=== PATIENT | male | born 1970 | race Caucasian/White ===

== ENCOUNTER 2024-08-25 12:15 | Inpatient (IN) | payer OTHER ==
[2024-08-25 13:09] VITALS: BMI 27.4
[2024-08-25] MEDS ORDERED: MAGNESIUM HYDROX 2400MG/30ML ORAL SUSPENSION 30 ML CUP PO PRN (13:22)
[2024-08-25] MEDS ORDERED: BENZONATATE 200 MG CAPSULE PO PRN (13:22)
[2024-08-25] MEDS ORDERED: NALOXONE (NARCAN) HCL 4 MG/0.1 ML SPRAY NS PRN (13:22)
[2024-08-25] MEDS ORDERED: DICYCLOMINE HCL 10 MG CAPSULE PO PRN (13:22)
[2024-08-25] MEDS ORDERED: LOPERAMIDE HCL 2 MG CAPSULE PO PRN (13:22)
[2024-08-25] MEDS ORDERED: POLYETHYLENE GLYCOL (HEALTHYLAX) 3350 17 GM PACKET PO PRN (13:22)
[2024-08-25] MEDS ORDERED: IBUPROFEN 400 MG TABLET (FP) PO PRN (13:22)
[2024-08-25] MEDS ORDERED: guaiFENesin 600 MG TABLET.ER (FP) PO PRN (13:22)
[2024-08-25] MEDS ORDERED: BENZOCAINE/MENTHOL (CHLORASEPTIC ) LOZENGE MM PRN (13:22)
[2024-08-25] MEDS ORDERED: chlordiazePOXIDE HCL 25 MG CAPSULE PO PRN (13:22)
[2024-08-25] MEDS ORDERED: MAG HYDROX/AL HYDROX/SIMETH 30 ML UNIT-DOSE CUP PO PRN (13:22)
[2024-08-25] MEDS ORDERED: BISMUTH SUBSALICYLATE 262 MG/15 ML BTL PO PRN (13:22)
[2024-08-25] MEDS ORDERED: ONDANSETRON *ODT* 4 MG TABLET SL PRN (13:22)
[2024-08-25] MEDS: NICOTINE 14 MG/24 HOURS TOPICAL PATCH TD SCH (15:27)
[2024-08-25] MEDS: PRENATAL VITAMINS W/ FOLIC ACID TABLET (FP) PO SCH (15:27)
[2024-08-25] MEDS ORDERED: LISINOPRIL 10 MG TABLET ONE (15:50)
[2024-08-25] MEDS ORDERED: cloNIDine HCL 0.1 MG TABLET ONE (15:50)
[2024-08-25] MEDS: cloNIDine HCL 0.1 MG TABLET PO ONE (15:52)
[2024-08-25] MEDS: LISINOPRIL 20 MG TABLET PO ONE (15:53)
[2024-08-25] MEDS: chlordiazePOXIDE HCL 25 MG CAPSULE PO SCH (16:50)
[2024-08-25] MEDS: IBUPROFEN 600 MG TABLET (FP) PO PRN (16:55)
[2024-08-25] MEDS: MELATONIN 5 MG TABLETS PO SCH (22:29)
[2024-08-25] MEDS: THIAMINE 100 MG TABLET PO SCH (22:29)
[2024-08-25] MEDS: ACETAMINOPHEN 325 MG TABLET (FP) PO PRN (22:32)
[2024-08-26] MEDS ORDERED: amLODIPine BESYLATE 10 MG TABLET (FP) PO SCH (10:00)
[2024-08-26] MEDS: amLODIPine BESYLATE 10 MG TABLET (FP) PO SCH (10:45)
[2024-08-26] MEDS: HYDROCHLOROTHIAZIDE 12.5 MG CAPSULE (FP) PO SCH (10:46)
[2024-08-26] MEDS: FLU VACCINE (FLULAVAL) PF 45 MCG/0.5 ML SYRINGE 2024-2025 IM ONE (12:41)
[2024-08-26 12:45] LABS: HEMATOCRIT 37.3 % (35.4-49); HEMOGLOBIN 12.9 GM/dL (11.7-16.9); MCH 32.1 pg (25.7-33.7); MCHC 34.6 g/dl (32.0-35.9); MEAN CELL VOLUME 92.9 fl (80-96); PLATELET COUNT 121 10^3/uL (134-434); RBC 4.01 M/mm3 (4.00-5.60); RDW 12.8 % (11.9-15.9); WHITE BLOOD COUNT 4.6 K/mm3 (4.0-10.0)
[2024-08-26 12:46] LABS: CHLORIDE 102 mmol/L (98-107); POTASSIUM 3.6 mmol/L (3.5-5.1); SODIUM 139 mmol/L (136-145)
[2024-08-26 12:49] LABS: CALCIUM 8.8 mg/dL (8.5-10.1)
[2024-08-26 12:50] LABS: ALBUMIN 3.7 g/dl (3.4-5.0); ANION GAP 7 mmol/L (4-13); CO2 30 mmol/L (21-32); GLUCOSE,RANDOM 75 mg/dL (74-106)
[2024-08-26 12:53] LABS: CREATININE 1.7 mg/dL (0.55-1.3); SGOT/AST 25 U/L (15-37); SGPT/ALT 24 U/L (13-61)
[2024-08-26 12:54] LABS: BILIRUBIN,TOTAL 0.7 mg/dL (0.2-1)
[2024-08-26 12:55] LABS: ALK PHOS 63 U/L (45-117)
[2024-08-26] MEDS: METHOCARBAMOL 500 MG TABLET PO PRN (14:41)
[2024-08-26] MEDS ORDERED: TIOTROPIUM BROMIDE 2.5 MCG (SPIRIVA) RESPIMAT INHALER IH SCH (22:00)
[2024-08-26] MEDS: FERROUS SO4 325 MG TABLET (FP) PO SCH (22:31)
[2024-08-26] MEDS: BUDESONIDE/FORMETEROL FUMARATE 160/4.5 mcg INHALER IH SCH (22:31)
[2024-08-27] MEDS: hydrOXYzine PAMOATE 25 MG CAPSULE (FP) PO PRN (05:38)
[2024-08-27] MEDS: chlordiazePOXIDE HCL 25 MG CAPSULE PO SCH (05:38)
[2024-08-27] MEDS ORDERED: BUDESONIDE/FORMETEROL FUMARATE 160/4.5 mcg INHALER IH SCH (10:00)
[2024-08-27] MEDS: ATORVASTATIN CA 20 MG TABLET (FP) PO SCH (10:05)
[2024-08-27] MEDS: TIOTROPIUM BROMIDE 2.5 MCG (SPIRIVA) RESPIMAT INHALER IH SCH (10:05)
[2024-08-27] MEDS ORDERED: METOPROLOL TARTRATE 50 MG TABLET (FP) PO SCH (10:55)
[2024-08-27] MEDS: METOPROLOL TARTRATE 50 MG TABLET (FP) PO SCH (11:21)
[2024-08-28] MEDS ORDERED: chlordiazePOXIDE HCL 10 MG CAPSULE PO PRN
[2024-08-28] MEDS: chlordiazePOXIDE HCL 10 MG CAPSULE PO SCH (05:50)
[2024-08-29] MEDS: chlordiazePOXIDE HCL 10 MG CAPSULE PO SCH (05:34)
[2024-08-29 10:48] LABS: POTASSIUM 3.4 mmol/L (3.5-5.1)
[2024-08-29 11:06] LABS: BLOOD UREA NITROGEN 20.8 mg/dL (7-18); CALCIUM 8.7 mg/dL (8.5-10.1)
[2024-08-29 11:07] LABS: ALBUMIN 3.2 g/dl (3.4-5.0)
[2024-08-29 11:09] LABS: PHOSPHOROUS 3.2 mg/dL (2.5-4.9)
[2024-08-29 11:10] LABS: CREATININE 0.8 mg/dL (0.55-1.3)
[2024-08-29] MEDS: LOSARTAN POTASSIUM 50 MG TABLET PO SCH (13:34)
[2024-08-29] MEDS: NALTREXONE HCL 50 MG TABLET PO ONE (14:13)
[2024-08-29] MEDS: LIDOCAINE 5% TOPICAL PATCH TP SCH (15:50)
[2024-08-29] MEDS: LIDOCAINE PATCH REMOVAL MC SCH (22:13)
[2024-08-30] MEDS: chlordiazePOXIDE HCL 10 MG CAPSULE PO ONE (05:50)
[2024-08-30] MEDS: NALTREXONE HCL 50 MG TABLET PO SCH (09:13)
[2024-08-30 10:14] VITALS: BP 133/81; PULSE 74; RESP 16; TEMP 98.9
== END 2024-08-30 10:54 | disposition home or self-care (01) | DRG 774 ==
LOC: YASAS 12:15 → Y6N 13:54
PROVIDERS: ADMIT Allergy & Immunology; ATTEND Allergy & Immunology
PROC: HZ2ZZZZ Detoxification Services for Substance Abuse Treatment (ICD-10-PCS; principal; 2024-08-25)
DX: F10.230 Alcohol dependence with withdrawal, uncomplicated (principal); F14.20 Cocaine dependence, uncomplicated; F17.210 Nicotine dependence, cigarettes, uncomplicated; F19.282 Other psychoactive substance dependence with psychoactive substance-induced sleep disorder; F19.280 Other psychoactive substance dependence with psychoactive substance-induced anxiety disorder; F32.9 Major depressive disorder, single episode, unspecified; E87.6 Hypokalemia; I10 Essential (primary) hypertension; J45.20 Mild intermittent asthma, uncomplicated; E78.2 Mixed hyperlipidemia; Z99.89 Dependence on other enabling machines and devices; Z62.810 Personal history of physical and sexual abuse in childhood; Z91.410 Personal history of adult physical and sexual abuse; Z63.0 Problems in relationship with spouse or partner; Z63.8 Other specified problems related to primary support group
CPT/HCPCS: 36415; 80053; 80069; 80305; 80307; 85027; 86780; 90656; 93005; 93010; G0008